=== PATIENT | male | born 1970 | race Caucasian/White ===

== ENCOUNTER 2020-02-21 05:28 | Inpatient (IN) | payer BC, OTHER ==
[2020-02-21] MEDS ORDERED: Scopolamine 1.5 MG Transdermal Patch TOP SCH (06:00)
[2020-02-21] MEDS ORDERED: Dextrose 5%-Lactated Ringers 1,000 ML IV SCH ×2 (06:00→12:15)
[2020-02-21] MEDS ORDERED: Acetaminophen 500 MG Tab PO ONE (06:00)
[2020-02-21] MEDS ORDERED: Celecoxib 200 MG Cap PO ONE (06:00)
[2020-02-21] MEDS ORDERED: cefOXitin 2 GM in Sodium Chloride 0.9% 50 ML IV ONE (06:00)
[2020-02-21] MEDS ORDERED: Albuterol 8 GM Inhaler INH ONE (06:00)
[2020-02-21] MEDS ORDERED: Albuterol/Ipratropium 3.0-0.5 MG/3 ML Neb Soln NEB ONE (06:30)
[2020-02-21] MEDS ORDERED: cefOXitin 2 GM Vial ONE (06:31)
[2020-02-21] MEDS ORDERED: fentaNYL 250 MCG/5 ML SDV ONE ×2 (07:03→08:28)
[2020-02-21] MEDS ORDERED: Neostigmine Methylsulfate 1 MG/ML 5 ML Syringe ONE (07:04)
[2020-02-21] MEDS ORDERED: Glycopyrrolate 0.2 MG/ML 5 ML MDV ONE (07:04)
[2020-02-21] MEDS ORDERED: Rocuronium 50 MG/5 ML Vial ONE (07:04)
[2020-02-21] MEDS ORDERED: Propofol 200 MG/20 ML SDV ONE (07:04)
[2020-02-21] MEDS ORDERED: Ondansetron 4 MG/2 ML SDV ONE (07:04)
[2020-02-21] MEDS ORDERED: Succinylcholine 200 MG/10 ML MDV ONE (07:04)
[2020-02-21] MEDS ORDERED: Dexamethasone 4 MG/ML SDV ONE (07:04)
[2020-02-21] MEDS ORDERED: Lactated Ringers 1,000 ML ONE (07:09)
[2020-02-21] MEDS ORDERED: Magnesium Sulfate 3.6 GM in Sodium Chloride 0.9% 100 ML IV SCH (08:00)
[2020-02-21] MEDS ORDERED: Ketamine 500 MG/5 ML MDV IV SCH (08:00)
[2020-02-21] MEDS ORDERED: Ketamine 50 MG in Sodium Chloride 0.9% 49.5 ML IV SCH (08:00)
[2020-02-21] MEDS ORDERED: Magnesium Sulfate 5.7 GM in Sodium Chloride 0.9% 250 ML IV ONE (08:30)
[2020-02-21] MEDS ORDERED: Labetalol 20 MG/4 ML Syringe ONE (08:37)
[2020-02-21] MEDS ORDERED: hydrOXYzine HCL 100 MG/2 ML SDV IM ONE (10:04)
[2020-02-21] MEDS ORDERED: fentaNYL 100 MCG/2 ML SDV IVPUSH ONE ×2 (10:24→10:42)
[2020-02-21] MEDS ORDERED: HYDROmorphone 1 MG/ML Syringe ONE (11:59)
[2020-02-21] MEDS ORDERED: Cyclobenzaprine 10 MG Tab PO PRN (12:02)
[2020-02-21] MEDS ORDERED: hydrOXYzine HCL 100 MG/2 ML SDV IM PRN (13:00)
[2020-02-21] MEDS ORDERED: Calcium Gluconate 10% 1 GM/10 ML SDV IVPUSH PRN (13:00)
[2020-02-21] MEDS ORDERED: Acetaminophen 500 MG Tab PO PRN (13:00)
[2020-02-21] MEDS ORDERED: Labetalol 20 MG/4 ML Syringe IVPUSH PRN (13:00)
[2020-02-21] MEDS ORDERED: diphenhydrAMINE 50 MG/ML SDV IVPUSH PRN (13:00)
[2020-02-21] MEDS ORDERED: Metoclopramide 10 MG/2 ML SDV IVPUSH PRN (13:00)
[2020-02-21] MEDS ORDERED: HYDROmorphone 0.5 MG/0.5 ML Syringe IVPUSH PRN (13:00)
[2020-02-21] MEDS ORDERED: Albuterol/Ipratropium 3.0-0.5 MG/3 ML Neb Soln INH PRN (13:00)
[2020-02-21] MEDS ORDERED: oxyCODONE 5 MG Tab PO PRN (13:00)
[2020-02-21] MEDS: cefOXitin 2 GM in Sodium Chloride 0.9% 50 ML IV SCH ×2 (14:05→20:52)
[2020-02-21] MEDS: Acetaminophen 500 MG Tab PO SCH ×3 (14:05→23:11)
[2020-02-21] MEDS: Pantoprazole 40 MG Vial IVPUSH SCH (14:05)
[2020-02-21] MEDS: HYDROmorphone 1 MG/ML Syringe IV PRN ×2 (14:30→21:16)
[2020-02-21] MEDS: Albuterol/Ipratropium 3.0-0.5 MG/3 ML Neb Soln INH SCH ×2 (14:46→20:51)
[2020-02-21] MEDS ORDERED: MVI, Adult with Vitamin K 10 ML, Thiamine 200 MG, Chromium/Copper/Mang/Selen/Zn 1 ML in... IV SCH ×4 (16:00)
[2020-02-21] MEDS: Heparin Sodium 5,000 Units/ML Vial SUBCUT SCH (16:53)
[2020-02-22] MEDS: cefOXitin 2 GM in Sodium Chloride 0.9% 50 ML IV SCH ×3 (00:59→14:33)
[2020-02-22] MEDS ORDERED: Iopamidol 612 MG/ML 50 ML SDV PO STA (03:36)
[2020-02-22] MEDS: Heparin Sodium 5,000 Units/ML Vial SUBCUT SCH ×2 (03:37→17:59)
[2020-02-22] MEDS: HYDROmorphone 1 MG/ML Syringe IV PRN (03:42)
--- NOTE | 2020-02-22 05:01 | CRLCR ---
INDICATION: S/P RNY LEAK CHECK Findings/Impression: Transit of contrast into the small bowel with mild residual in the gastric pouch and distal esophagus. No contrast extravasation demonstrated into the peritoneal cavity. Dictated by Daryl Garcia MD @ 02/22/2020 4:58:54 AM Dictated by: Rafita Lerner MD @ 02/23/2020 09:21:15 (Electronically Signed)
[2020-02-22] MEDS: Acetaminophen 500 MG Tab PO SCH (05:15)
[2020-02-22] MEDS: Albuterol/Ipratropium 3.0-0.5 MG/3 ML Neb Soln INH SCH ×4 (07:00→20:27)
[2020-02-22] MEDS ORDERED: traZODone 50 MG Tab PO PRN (07:37)
[2020-02-22] MEDS ORDERED: Dextrose 5%-Lactated Ringers 1,000 ML IV SCH (07:45)
[2020-02-22] MEDS: Ondansetron 4 MG/2 ML SDV IVPUSH PRN ×2 (07:50→12:57)
[2020-02-22] MEDS: Celecoxib 200 MG Cap PO SCH ×2 (08:59→20:26)
[2020-02-22] MEDS ORDERED: SCOPOLAMINE PATCH CHECK TOP SCH (09:00)
[2020-02-22] MEDS: Acetaminophen Soln 650 MG/20.3 ML UD Cup PO SCH ×2 (09:01→21:07)
[2020-02-22] MEDS ORDERED: Acetaminophen Soln 650 MG/20.3 ML UD Cup PO PRN (14:30)
[2020-02-22] MEDS: Pantoprazole 40 MG Vial IVPUSH SCH (14:33)
[2020-02-22] MEDS ORDERED: MVI, Adult with Vitamin K 10 ML, Thiamine 200 MG, Chromium/Copper/Mang/Selen/Zn 1 ML in... IV SCH ×4 (16:00)
[2020-02-22] MEDS ORDERED: Ondansetron 4 MG Tab.DIS PO PRN (17:44)
[2020-02-23] MEDS: Acetaminophen Soln 650 MG/20.3 ML UD Cup PO SCH ×2 (04:02→08:17)
[2020-02-23] MEDS: Heparin Sodium 5,000 Units/ML Vial SUBCUT SCH (04:03)
[2020-02-23 04:10] VITALS: BP 150/68
[2020-02-23] MEDS: Albuterol/Ipratropium 3.0-0.5 MG/3 ML Neb Soln INH SCH (06:58)
[2020-02-23 06:59] VITALS: PULSE 84
[2020-02-23] MEDS: Celecoxib 200 MG Cap PO SCH (08:16)
[2020-02-23] MEDS ORDERED: Cyanocobalamin (Vitamin B12) 1,000 MCG/ML SDV IM ONE (09:00)
--- NOTE | 2020-02-23 09:23 | DISCH ---
ADMISSION DIAGNOSES: 1. Morbid obesity. 2. BMI 43.8. 3. Obstructive sleep apnea. 4. Systolic murmur. 5. Hypercholesterolemia. 6. Sensorineural hearing loss. 7. Diverticulitis. DISCHARGE DIAGNOSES: 1. Laparoscopic Jose-en-Y gastric bypass surgery. 2. Liver biopsy. 3. Repair of diaphragmatic hernia. 4. Partial gastrectomy. POSTOPERATIVE DIAGNOSES: 1. Morbid obesity. 2. Hepatomegaly. 3. Diaphragmatic hernia. 4. Area of gastric resection after formation of pouch. 5. Date of procedure: 02/21/2020. Surgeon: Chucho Nieto MD. HISTORY: Jordan Hatch is a pleasant 49-year-old male with morbid obesity and increasing comorbidities. After preoperative evaluation, discussion of possible risks and possible complications, he wished to proceed with surgical procedure. HOSPITAL COURSE: Jordan had his surgery on 02/21/2020. He had no operative complications. On postoperative day #1, he was started on a step 2 gastric bypass diet with no cereal. On postoperative day #2, his pain was controlled. His activity was good. Vital signs were stable. He received dietary instructions and was able to be discharged to home. PHYSICAL EXAMINATION: GENERAL: Jordan Hatch is a 49-year-old male. He is alert and orientated. VITAL SIGNS: Height is 5 feet 7.5 inches, weight is 284 pounds. TPR is 97.3; 89; 18; blood pressure 150/68. HEENT: Negative. NECK: Supple. HEART: Regular rate and rhythm. LUNGS: Clear. ABDOMEN: Incisions look good. Abdominal binder is on and 4x4s over KATARZYNA drain site. EXTREMITIES: Without peripheral edema. DISPOSITION: Discharged to home. CONDITION: Stable and improving. FOLLOWUP: Appointment with Terri Hadley PA-C, at [facility] on 02/29/2020 at 11:30 a.m. HOME PRESCRIPTIONS: 1. Oxycodone 5 mg p.o. q.6 hours p.r.n. pain, #12. 2. Zofran ODT 4 mg p.o. q.4 hours p.r.n. for nausea, #30. 3. Celebrex 200 mg p.o. b.i.d. 4. Tylenol 1000 mg p.o. q.8 hours for pain. 5. Trazodone 50 mg at bedtime. 6. Sildenafil 20 mg as directed p.r.n. 7. Flexeril 10 mg t.i.d. p.r.n. 8. Albuterol inhaler every 6 hours p.r.n. 9. Clotrimazole 1 applicator twice daily. DIET: Step 2 gastric bypass diet with no cereal until 03/07/2020. To drink 8 to 10 glasses of water a day. OTHER ACTIVITY: No lifting greater than 10 pounds for 2 weeks. Walk 6 times daily inside your home. Driving: Do not drive for 1 week or while on pain medication. Shower/bathing: May shower. DISCHARGE INSTRUCTIONS: Keep operative site clean and dry. Wear abdominal binder for 2 weeks and then as tolerated. Notify provider if any fever, increased pain, nausea, or vomiting. Use incentive spirometer 10 times every hour while awake for 1 week.
--- NOTE | 2020-02-23 20:05 | PN ---
DATE OF SERVICE: 02/22/2020 The patient has been afebrile with stable vital signs. Urine output has been adequate. Upper GI was done this morning. We will back down the IV rate and maximize activity and work with pulmonary toilet. We will go up to the step-2 diet without solids today and he may be ready for discharge home tomorrow. Chucho Nieto MD /[id number]
--- NOTE | 2020-02-25 14:26 | OR ---
DATE OF PROCEDURE: 02/21/2020 SURGEON: Chucho Nieto MD PREOPERATIVE DIAGNOSIS: Morbid obesity. POSTOPERATIVE DIAGNOSES: 1. Morbid obesity. 2. Marked hepatomegaly. 3. Paraesophageal diaphragmatic hernia. 4. Area of gastric ischemia, status post formation of gastric pouch. OPERATIVE PROCEDURE: Diagnostic laparoscopy with: 1. Laparoscopic Jose-en-Y gastric bypass with long-limb gastroenterostomy (59751). 2. Carlos-Cut needle liver biopsy (61158). 3. Repair of paraesophageal diaphragmatic hernia (88445). 4. Partial gastrectomy (53063). ANESTHESIA: General. LICENSED FUNERAL DIRECTOR AND EMBALMER: Terri Hadley PA-C INDICATIONS FOR PROCEDURE: This is a 49-year-old presenting with longstanding morbid obesity and increasingly significant comorbidities. After preoperative evaluation and discussion, he wished to proceed with a gastric bypass procedure. Potential risks of the procedure including bleeding, infection, leaks from various GI tract closures, problems with bowel obstruction over time, as well as the possibility of cardiopulmonary, septic, or hemorrhagic complications leading to were discussed, and the patient wishes to proceed. DETAILS OF PROCEDURE: The patient was taken to the operative room. After general endotracheal anesthesia was induced, he was placed in a lithotomy position and the abdomen prepped and draped. 15 cm inferior and 5 cm left of the xiphoid process, a transverse incision was made and the peritoneal cavity entered under direct vision with an Optiview trocar and inflated to 15 mmHg with CO2. The laparoscope was then reinserted. No underlying trocar insertion site injuries were seen. Following this, bilateral transversus abdominis plane blocks were placed, and 5 additional trocars were placed across the upper mid abdomen. The patient was noted to have marked hepatomegaly with liver being grossly fatty infiltrated. Carlos-Cut needle biopsies were obtained from the left lobe of the liver. Minimal bleeding from the biopsy sites was controlled with electrocautery. The omentum was then divided in the midline up to the level of the transverse colon. This allowed identification of the small bowel at the ligament of Treitz. Small bowel was then traced out 150 cm distal to that point and was divided transversely with a LOYD stapler. Small bowel was then traced out additional 150 cm where a [id number] enteroenterostomy was accomplished with internal firing of the Endo-LOYD 60 mm stapler. Common opening was then closed transversely with the same stapler, angles anastomosed, and mesenteric defect approximated with some 0 Ethibond stitch along with 4 mL of fibrin sealant. The divided Jose limb was then brought up to the area of the esophagogastric junction without tension. The liver was then retracted anteriorly. The patient was noted to have significant paraesophageal diaphragmatic hernia with prolapse of perigastric fat, some gastric fundus, and some omentum in a plane anterior to the course of the esophagus. This was reduced and the peritoneum overlying incised and reflected downward. An anterior repair of the diaphragmatic hernia was accomplished with 0 Ethibond sutures reinforced with PTFE pledgets. The gastrointestinal balloon catheter was then inflated with 15 mL and pulled up snugly against the EJ junction. Gastric wall over the apex of the balloon was then marked with electrocautery and balloon catheter deflated and pulled up in the esophagus. The lesser omental tissue adjacent to the gastric cardia was then incised, allowing dissection behind the stomach at that level. Pouch formation was initiated with transverse firing of the LOYD stapler at the level of the cauterized amilcar at the gastric cardia and completed with some additional LOYD firings up to and through the angle of His. Upon completion of the pouch, both staple lines were noted to be intact. The distal end of the gastric pouch was noted to be quite ischemic at this point, and additional gastric resection was then accomplished with a LOYD stapler firing x2. The remaining gastric pouch was noted to be well vascularized. The anvil of a 25 mm EEA stapler was attached to a Summit sump type tube, the latter was brought down through the mouth and taken out through a small opening in the gastric pouch, allowing the anvil likewise to be pulled down to within the gastric pouch. The divided Jose limb was then opened, and the main body of the EEA stapler passed several centimeters in the lumen of the small bowel, brought up the anvil, and united with it, thus creating the gastrojejunostomy. Upon removal of the stapler, double donuts of mucosa were noted within it. Small bowel was closed off with a vascular staple line. Gastrojejunostomy was reinforced with 3-0 Vicryl seromuscular stitch along with fibrin sealant. A leak test was accomplished with injection of 120 mL of air in the gastric pouch while it was submerged with cefoxitin-containing saline solution. No leaks were identified. A single Fabian- Lunsford drain was taken out through the left lateral trocar site and positioned adjacent to the gastrojejunostomy, and from there, up into the splenic fossa. No additional problems were noted. Trocars were removed and the peritoneal cavity deflated. The incisions were closed with some 4-0 Vicryl skin stitch and drains affixed with 4-0 Vicryl stitch as well. The patient was taken to the recovery room in satisfactory condition. Physician nurseryman assistant, Terri Hadley, played an essential role in assisting in this case, helping to position the patient, retract structures as needed, as well as suturing and cutting sutures when indicated. Her presence improved patient's safety and decreased operative time. Chucho Nieto MD /[id number]
== END 2020-02-23 09:30 | disposition home or self-care (01) | DRG 403 ==
LOC: JP.SDS 05:28 → JP.SDSSCHI 05:28 → EDSTATUS 07:15 → JP.MS 10:00
PROVIDERS: ADMIT Surgery; ATTEND Surgery
PROC: 0D164ZA Bypass Stomach to Jejunum, Percutaneous Endoscopic Approach (ICD-10-PCS; principal; 2020-02-21)
PROC: 0FB24ZX Excision of Left Lobe Liver, Percutaneous Endoscopic Approach, Diagnostic (ICD-10-PCS; 2020-02-21)
PROC: 0DB64ZZ Excision of Stomach, Percutaneous Endoscopic Approach (ICD-10-PCS; 2020-02-21)
PROC: 0BQT4ZZ Repair Diaphragm, Percutaneous Endoscopic Approach (ICD-10-PCS; 2020-02-21)
DX: E66.01 Morbid (severe) obesity due to excess calories (principal); G47.33 Obstructive sleep apnea (adult) (pediatric); E78.00 Pure hypercholesterolemia, unspecified; R16.0 Hepatomegaly, not elsewhere classified; K44.9 Diaphragmatic hernia without obstruction or gangrene; R01.1 Cardiac murmur, unspecified; H90.5 Unspecified sensorineural hearing loss; F32.9 Major depressive disorder, single episode, unspecified; I99.8 Other disorder of circulatory system; Z68.41 Body mass index [BMI] 40.0-44.9, adult
CPT/HCPCS: 36415; 74240; 82962; 86850; 86900; 86901; 88305; 88307; 88313; 94640; 94762; A9270-GY; C9113; J0171; J0330; J0694; J1100; J1170; J1644; J2405; J2704; J2710; J2795; J3010; J3410; J3411; J3420; J3475; J3490; J7050; J7120; J7121; J7620-GY; Q9967

== ENCOUNTER 2020-07-10 21:11 | Emergency (ER) | payer BC ==
[2020-07-10 21:47] VITALS: BP 144/79; PULSE 68
[2020-07-10] MEDS ORDERED: Sodium Chloride 0.9% 10 ML Syringe FLUSH PRN (21:56)
[2020-07-10] MEDS ORDERED: Lactated Ringers 1,000 ML IV ONE (21:56)
[2020-07-10] MEDS ORDERED: Ondansetron 4 MG/2 ML SDV IVPUSH ONE (21:56)
--- NOTE | 2020-07-10 21:59 | EDM.PDOC ---
ED HPI GENERAL MEDICAL PROBLEM - General Chief Complaint: Gastrointestinal Problem Stated Complaint: STOMACH CRAMPING- 4 MO POST GASTRIC Time Seen by Provider: 07/10/20 21:52 Source of Information: Reports: Patient, Family, RN Notes Reviewed History Limitations: Reports: No Limitations - History of Present Illness INITIAL COMMENTS - FREE TEXT/NARRATIVE: 49-year-old gentleman presents emergency department with a complaint of abdominal pain, he is approximately 4 months out gastric bypass states over the last couple weeks he has noticed has had problems with the portions that he has been able to eat to have been reduced in size and now this morning he had eggs for breakfast he still getting a few pieces of egg when he regurgitate, intermittent nausea intermittent pain no fever - Related Data Allergies Allergy/AdvReac Type Severity Reaction Status Date / Time No Known Allergies Allergy Verified 07/10/20 21:23 Home Meds: Home Meds Albuterol Sulfate [Proair Hfa] 8.5 gm IH Q6HR PRN 08/25/14 [History] Clotrimazole [Clotrimazole 1%] 1 applic TOP BID 02/18/20 [History] Sildenafil [Revatio] 20 mg PO ASDIRECTED PRN 02/18/20 [History] Acetaminophen [Tylenol] 500 mg PO Q8H PRN cup 02/23/20 [Rx] Ondansetron [Zofran ODT] 4 mg PO Q4H PRN #30 tab.dis 02/23/20 [Rx] Calcium Carbonate [Calcium] 1 tab PO BID 07/10/20 [History] Magnesium Oxide [Magnesium] 2 tab PO BID 07/10/20 [History] Mecobalamin [B12 Active] 1,000 mg SL BID 07/10/20 [History] Multivitamin/Iron/Folic Acid [Centrum Adults Tablet] 1 tab PO BID 07/10/20 [History] Vit D3 & K/Berberine HCl/Hops [Ostera] 1 tab PO BID 07/10/20 [History] Past Medical History HEENT History: Reports: Impaired Vision Other HEENT History: wears glasses Respiratory History: Reports: Sleep Apnea Gastrointestinal History: Reports: Diverticulosis, GERD Psychiatric History: Reports: Anxiety Endocrine/Metabolic History: Reports: Obesity/BMI 30+ Dermatologic History: Reports: Eczema - Infectious Disease History Infectious Disease History: Reports: Chicken Pox, Influenza - Past Surgical History HEENT Surgical History: Reports: None Respiratory Surgical History: Reports: None GI Surgical History: Reports: Colonoscopy, EGD, Hernia, Abdominal, Polypectomy Male Surgical History: Reports: Vasectomy Endocrine Surgical History: Reports: None Dermatological Surgical History: Reports: None, Skin Biopsy Social & Family History - Family History Cardiac: Reports: High Cholesterol, NE Musculoskeletal: Reports: Arthritis Endocrine/Metabolic: Reports: Diabetes, type II Oncologic: Reports: Prostate - Tobacco Use Tobacco Use Status *Q: Never Tobacco User - Caffeine Use Caffeine Use: Reports: Coffee - Recreational Drug Use Recreational Drug Use: No ED ROS GENERAL - Review of Systems Review Of Systems: See Below Constitutional: Reports: No Symptoms Respiratory: Reports: No Symptoms Cardiovascular: Reports: No Symptoms GI/Abdominal: Reports: Abdominal Pain, Flatus, Nausea ED EXAM, GI/ABD - Physical Exam Exam: See Below Exam Limited By: No Limitations General Appearance: Alert, WD/WN, No Apparent Distress Respiratory/Chest: No Respiratory Distress, Lungs Clear, Normal Breath Sounds, No Accessory Muscle Use, Chest Non-Tender Cardiovascular: Regular Rate, Rhythm, No Murmur GI/Abdominal Exam: Normal Bowel Sounds, Soft, No Distention, Tender (Epigastric periumbilical region) Course - Vital Signs Last Recorded V/S: Last Vital Signs Temp 98 F 07/10/20 21:47 Pulse 68 07/10/20 21:47 Resp 18 07/10/20 21:47 BP 144/79 H 07/10/20 21:47 Pulse Ox 100 07/10/20 21:47 - Orders/Labs/Meds Orders: Active Orders 24 hr Category Date Time Status Peripheral IV Care [RC] . DIRECTED Care 07/10/20 21:56 Active Sodium Chloride 0.9% [Normal Saline] 85 ml Med 07/10/20 22:30 Active IV ASDIRECTED Sodium Chloride 0.9% [Saline Flush] Med 07/10/20 21:56 Active 10 ml FLUSH ASDIRECTED PRN Peripheral IV Insertion Adult [OM.PC] Urgent Oth 07/10/20 21:56 Ordered Medication Orders Sodium Chloride (Normal Saline) 85 mls @ 3.5 mls/sec IV ASDIRECTED NGUYỄN Last Admin: 07/10/20 22:40 Dose: 3.5 mls/sec Documented by: JELANI Sodium Chloride (Saline Flush) 10 ml FLUSH ASDIRECTED PRN PRN Reason: Keep Vein Open Last Admin: 07/10/20 22:43 Dose: 10 ml Documented by: SHI Labs: Laboratory Tests 07/10/20 07/10/20 07/10/20 Range/Units 22:08 22:08 22:08 WBC 9.3 (4.5-11.0) K/uL RBC 5.02 (4.30-5.90) M/uL Hgb 14.1 (12.0-15.0) g/dL Hct 42.7 (40.0-54.0) % MCV 85 (80-98) fL MCH 28 (27-31) pg MCHC 33 (32-36) % Plt Count 276 (150-400) K/uL Neut % (Auto) 78 H (36-66) % Lymph % (Auto) 14 L (24-44) % [place] % (Auto) 8 H (2-6) % Eos % (Auto) 1 L (2-4) % Baso % (Auto) 0 (0-1) % Sodium 142 (140-148) mmol/L Potassium 3.9 (3.6-5.2) mmol/L Chloride 104 (100-108) mmol/L Carbon Dioxide 26 (21-32) mmol/L Anion Gap 12.4 (5.0-14.0) mmol/L BUN 15 (7-18) mg/dL Creatinine 0.7 L (0.8-1.3) mg/dL Est Cr Clr Drug Dosing 122.76 mL/min Estimated GFR (MDRD) > 60 (>60) Glucose 100 (74-106) mg/dL Lactic Acid 1.1 (0.4-2.0) mmol/L Calcium 9.9 (8.5-10.1) mg/dL Total Bilirubin 0.4 (0.2-1.0) mg/dL AST 28 (15-37) U/L ALT 105 H (12-78) U/L Alkaline Phosphatase 134 H (46-116) U/L Total Protein 7.0 (6.4-8.2) g/dL Albumin 3.8 (3.4-5.0) g/dL Globulin 3.2 (2.3-3.5) g/dL Albumin/Globulin Ratio 1.2 (1.2-2.2) Meds: Medications Generic Name Dose Route Start Last Admin Trade Name Anjali PRN Reason Stop Dose Admin Sodium Chloride 85 mls @ 3.5 mls/sec 07/10/20 22:30 07/10/20 22:40 Normal Saline IV 3.5 mls/sec ASDIRECTED NGUYỄN Administration Sodium Chloride 10 ml 07/10/20 21:56 07/10/20 22:43 Saline Flush FLUSH 10 ml ASDIRECTED PRN Administration Keep Vein Open Discontinued Medications Generic Name Dose Route Start Last Admin Trade Name Anjali PRN Reason Stop Dose Admin Lactated Ringer's 1,000 mls @ 999 mls/hr 07/10/20 21:56 07/10/20 22:25 Ringers, Lactated IV 07/10/20 22:56 999 mls/hr BOLUS ONE Administration Iopamidol 150 ml 07/10/20 22:17 07/10/20 22:39 Isovue-300 (61%) IV 07/10/20 22:18 150 ml ONETIME ONE Administration Ondansetron HCl 4 mg 07/10/20 21:56 07/10/20 22:22 Zofran IVPUSH 07/10/20 21:57 4 mg ONETIME ONE Administration Sodium Chloride 10 ml 07/10/20 22:17 07/10/20 22:39 Saline Flush FLUSH 07/10/20 22:18 10 ml ONETIME ONE Administration Departure - Departure Time of Disposition: 23:29 Disposition: Home, Self-Care 01 Condition: Fair Clinical Impression: Gastric outlet obstruction - Discharge Information Referrals: PCP,None [Primary Care Provider] - Forms: ED Department Discharge Additional Instructions: Recommend no longer eating or drinking tonight, please report to the outpatient surgery center in the morning for an EGD with dilation with Dr. Nieto expect this to be the first case Sepsis Event Note (ED) - Evaluation Sepsis Screening Result: No Definite Risk - Focused Exam Vital Signs: Vital Signs Temp Pulse Resp BP Pulse Ox 07/10/20 21:47 98 F 68 18 144/79 H 100 07/10/20 21:46 98 F 68 18 144/79 H 100 - My Orders Last 24 Hours: My Active Orders 07/10/20 21:56 Peripheral IV Care [RC] . DIRECTED Sodium Chloride 0.9% [Saline Flush] 10 ml FLUSH ASDIRECTED PRN Peripheral IV Insertion Adult [OM.PC] Urgent 07/10/20 22:30 Sodium Chloride 0.9% [Normal Saline] 85 ml IV ASDIRECTED - Assessment/Plan Last 24 Hours: My Active Orders 07/10/20 21:56 Peripheral IV Care [RC] . DIRECTED Sodium Chloride 0.9% [Saline Flush] 10 ml FLUSH ASDIRECTED PRN Peripheral IV Insertion Adult [OM.PC] Urgent 07/10/20 22:30 Sodium Chloride 0.9% [Normal Saline] 85 ml IV ASDIRECTED Plan: Assessment Acuity = acute Site and laterality = low-grade outlet obstruction anastomosis Etiology = unknown Manifestations = nausea, abdominal pain Location of injury = Home Lab values = CBC CMP lactic acid unremarkable however CT scan does describe a probable outlet obstruction low-grade at the anastomosis site from his Jose-en-Y surgery Plan Call discussed case Dr. Nieto surgeon on-call at 2320 recommended EGD with dilation plan is to be n.p.o. aleja he will report to the outpatient surgery tomorrow morning at 7 AM for this procedure, this is coordinated with the vat house laborer This note was dictated using [employer] voice recognition software please call with any questions on syntax or grammar.
[2020-07-10] MEDS ORDERED: Sodium Chloride 0.9% 10 ML Syringe FLUSH ONE (22:17)
[2020-07-10] MEDS ORDERED: Iopamidol 612 MG/ML 500 ML Multipack Bottle IV ONE (22:17)
--- NOTE | 2020-07-10 23:19 | CRLCT ---
Indication: Epigastric pain, Jose-en-Y Technique: Contrast enhanced axial CT imaging through the abdomen and pelvis. 150 mL Isovue-300 contrast agent was administered intravenously. Sagittal and coronal reconstructions are provided. Comparison: CT abdomen pelvis without contrast 10/29/2018 Findings: Jose-en-Y gastric bypass changes are noted. The gastric pouch and excluded stomach are unremarkable. There is no appreciable wall thickening, adjacent edema, or fluid collection at the gastrojejunal and jejunojejunal anastomosis sites. However, there is mild distention involving the distal biliopancreatic limb, up to 3.2 cm with abrupt transition to normal caliber at the anastomosis. The alimentary limb is nondistended. The distal small bowel is unremarkable. The appendix is noninflamed. There is no colonic wall thickening, mesenteric edema, or intraperitoneal free fluid. Note is made of a small shallow fat containing umbilical hernia, unchanged since prior. There is a 3.8 cm lobulated hypoattenuating lesion in the anterior aspect of the right hepatic lobe. This was likely present on prior non CT but appears somewhat increased in size. Additional smaller lobulated hypoattenuating lesion is noted in the superior aspect of the lateral segment left hepatic lobe. This demonstrates nodular peripheral enhancement, an appearance suggestive of benign hemangioma. A subcentimeter hypoattenuating focus is also noted in the posterior inferior right hepatic, too small to characterize. Ill-defined focus of hypoattenuation in the anterior medial segment adjacent to the fissure for ligamentum venosum is compatible benign focal fat. The gallbladder, spleen, adrenal glands, pancreas, and kidneys are unremarkable. The portal vein is patent. The abdominal aorta is normal in caliber. There is no abdominal lymphadenopathy. A moderate amount of free fluid is noted in the pelvis. The urinary bladder, seminal vesicles, and prostate gland are unremarkable. There is no pelvic lymphadenopathy. The osseous structures are unremarkable. The included lung bases are clear. Impression: 1. Mild distention of the distal biliopancreatic limb, suggesting low-grade obstruction at the jejunojejunal anastomosis is not excluded. The alimentary limb is nondistended. No appreciable abnormality of the gastric pouch, excluded stomach, or gastrojejunal anastomosis. 2. Two lobulated hypoattenuating lesions in the liver, one of which demonstrates peripheral nodular enhancement. These are favored to represent benign hemangiomas. Nonemergent contrast-enhanced MRI of the abdomen is recommended for confirmation, if not previously performed. 3. Nonspecific free fluid layering in the pelvis. Please note that all CT scans at this facility use dose modulation, iterative reconstruction, and/or weight-based dosing when appropriate to reduce radiation dose to as low as reasonably achievable. Dictated by Daryl Garcia MD @ Jul 10 2020 10:59PM Signed by Dr. Daryl Garcia @ Jul 10 2020 11:17PM
== END 2020-07-10 23:48 | disposition home or self-care (01) ==
LOC: JP.ED 21:11
DX: K31.1 Adult hypertrophic pyloric stenosis (principal); E66.9 Obesity, unspecified; Z68.36 Body mass index [BMI] 36.0-36.9, adult; Z79.899 Other long term (current) drug therapy
CPT/HCPCS: 36415; 74177; 80053; 83605; 85025; 96361; 96374; 99284; 99284-25; J2405; J7120; Q9967

== ENCOUNTER → 2020-07-11 | Day surgery (SDC) | payer BC ==
[~2020-07-11] MED LIST: Cyanocobalamin (Vitamin B12) 1,000 MCG/ML SDV IM ONE; Dextrose 5%-Lactated Ringers 1,000 ML IV SCH; Glycopyrrolate 0.2 MG/ML 2 ML SDV IVPUSH ONE; Lactated Ringers 1,000 ML IV SCH; MVI, Adult with Vitamin K 10 ML, Zinc/Copper/Manganese/Selenium 1 ML, Thiamine 200 MG i... IV ONE; Midazolam 1 MG/ML 2 ML SDV ONE; Propofol 200 MG/20 ML SDV ONE; fentaNYL 100 MCG/2 ML SDV ONE
[2020-07-11 09:20] VITALS: PULSE 61
[2020-07-11 09:27] VITALS: BP 113/69
--- NOTE | 2020-07-16 12:37 | OR ---
DATE OF PROCEDURE: 07/11/2020 SURGEON: Chucho Nieto MD PREOPERATIVE DIAGNOSIS: Postprandial abdominal pain status post a Jose-en-Y gastric bypass. POSTOPERATIVE DIAGNOSIS: Normal upper gastrointestinal endoscopic examination status post Jose-en-Y gastric bypass suggestive of a more distal partial small bowel obstruction. OPERATIVE PROCEDURE: Upper gastrointestinal endoscopy. ANESTHESIA: IV sedation. INDICATIONS FOR PROCEDURE: The patient was seen in the emergency room last night. He is status post Jose-en-Y gastric bypass this past fall. Over the last several days, he has had some postprandial crampy pain and he had eaten some eggs earlier in the day, presented to the emergency room with a more intense crampy abdominal pain along with some nausea. The CT scan at that time showed some distention of the biliopancreatic limb suggestive of possible partial obstruction at that level. Plan at this point is to proceed with an upper GI endoscopy with biopsies and/or dilation as indicated. Potential risks including bleeding and perforation were discussed, and the patient wishes to proceed. DETAILS OF PROCEDURE: The patient was taken to the operating room, placed in a left lateral decubitus position. IV sedation was administered after which the upper GI endoscope was passed orally through the length of the esophagus, into the gastric pouch, from there through the gastrojejunostomy roughly 20 cm into the Jose limb. Overall, the findings were entirely normal. There were no areas of inflammation or stricturing and no backup of bile per se into the Jose limb. The scope was then withdrawn and the above findings reconfirmed. The patient at this point was given some clear liquids in the postoperative recovery area and did tolerate over 900 mL of liquids. The plan at this point will be to have him stay on a liquid diet for 1 week, and then if he is doing okay at that point, start with a step-3 soft solid diet, and follow the clinical trend. If he does develop a recurrent or persistent abdominal pain in the postprandial period, the next step would be to proceed with a limited laparotomy with release of undoubtedly at this point would be a partial small bowel obstruction. Chucho Nieto MD /[id number]
== END ==
LOC: JP.SDS 05:35
PROVIDERS: ATTEND Surgery
DX: K95.89 Other complications of other bariatric procedure (principal); Z01.812 Encounter for preprocedural laboratory examination; Z20.822 Contact with and (suspected) exposure to COVID-19; Z79.899 Other long term (current) drug therapy; E66.9 Obesity, unspecified; Z98.890 Other specified postprocedural states; Z68.35 Body mass index [BMI] 35.0-35.9, adult
CPT/HCPCS: J2250; J2704; J3010; J3411; J3420; J7120; U0002

== ENCOUNTER 2020-07-29 06:05 | Inpatient (IN) | payer BC ==
[2020-07-29] MEDS ORDERED: Celecoxib 200 MG Cap PO ONE ×2 (06:50→14:00)
[2020-07-29] MEDS ORDERED: Scopolamine 1.5 MG Transdermal Patch TOP SCH (06:50)
[2020-07-29] MEDS ORDERED: Bupivacaine 0.5% 50 ML MDV ONE (06:58)
[2020-07-29] MEDS ORDERED: Meropenem 500 MG SDV ONE (06:58)
[2020-07-29] MEDS ORDERED: Lidocaine 1% with EPINEPHrine 1:100,000 50 ML MDV ONE (06:58)
[2020-07-29] MEDS ORDERED: Albuterol/Ipratropium 3.0-0.5 MG/3 ML Neb Soln NEB ONE (07:00)
[2020-07-29] MEDS ORDERED: Dextrose 5%-Lactated Ringers 1,000 ML IV SCH (07:00)
[2020-07-29] MEDS ORDERED: Ketamine 500 MG/5 ML MDV IV SCH (07:30)
[2020-07-29] MEDS ORDERED: Ropivacaine 50 ML, dexAMETHasone 8 MG, EPINEPHrine 0.4 MG, Sodium Chloride 0.9% 27.6 ML NERVRT SCH ×4 (07:30)
[2020-07-29] MEDS ORDERED: Naloxone 0.4 MG/ML SDV IV PRN ×3 (07:30→12:00)
[2020-07-29] MEDS ORDERED: Ketamine 50 MG in Sodium Chloride 0.9% 49.5 ML IV SCH (07:30)
[2020-07-29] MEDS ORDERED: cefOXitin 2 GM in Sodium Chloride 0.9% 50 ML IV ONE (07:30)
[2020-07-29] MEDS ORDERED: Magnesium Sulfate 3 GM in Sodium Chloride 0.9% 100 ML IV SCH (07:30)
[2020-07-29] MEDS ORDERED: Ondansetron 4 MG/2 ML SDV ONE (07:33)
[2020-07-29] MEDS ORDERED: Rocuronium 50 MG/5 ML Vial ONE (07:33)
[2020-07-29] MEDS ORDERED: Dexamethasone 4 MG/ML SDV ONE (07:33)
[2020-07-29] MEDS ORDERED: Propofol 200 MG/20 ML SDV ONE (07:33)
[2020-07-29] MEDS ORDERED: Glycopyrrolate 0.2 MG/ML 5 ML MDV ONE (07:33)
[2020-07-29] MEDS ORDERED: Succinylcholine 200 MG/10 ML MDV ONE (07:33)
[2020-07-29] MEDS ORDERED: Neostigmine Methylsulfate 1 MG/ML 5 ML Syringe ONE (07:33)
[2020-07-29] MEDS ORDERED: fentaNYL 250 MCG/5 ML SDV ONE ×2 (07:33→08:03)
[2020-07-29] MEDS ORDERED: HYDROmorphone/Normal Saline 15 MG/30 ML PCA IV PRN ×3 (08:40→14:59)
[2020-07-29] MEDS ORDERED: hydrOXYzine HCL 100 MG/2 ML SDV IM ONE (09:30)
[2020-07-29] MEDS ORDERED: Pantoprazole 40 MG Vial IVPUSH SCH (10:45)
[2020-07-29] MEDS ORDERED: Cyclobenzaprine 10 MG Tab PO PRN (11:12)
[2020-07-29] MEDS: Acetaminophen 500 MG Tab PO ONE ×2 (11:34→14:26)
[2020-07-29] MEDS ORDERED: Metoclopramide 10 MG/2 ML SDV IVPUSH PRN (12:00)
[2020-07-29] MEDS ORDERED: Labetalol 20 MG/4 ML Syringe IVPUSH PRN (12:00)
[2020-07-29] MEDS ORDERED: Acetaminophen 500 MG Tab PO PRN (12:00)
[2020-07-29] MEDS ORDERED: Ondansetron 4 MG/2 ML SDV IVPUSH PRN (12:00)
[2020-07-29] MEDS ORDERED: hydrOXYzine HCL 100 MG/2 ML SDV IM PRN (12:00)
[2020-07-29] MEDS ORDERED: diphenhydrAMINE 50 MG/ML SDV IVPUSH PRN (12:00)
[2020-07-29] MEDS ORDERED: Calcium Gluconate 10% 1 GM/10 ML SDV IVPUSH PRN (12:00)
[2020-07-29] MEDS ORDERED: Albuterol/Ipratropium 3.0-0.5 MG/3 ML Neb Soln INH PRN (12:00)
[2020-07-29] MEDS: cefOXitin 2 GM in Sodium Chloride 0.9% 50 ML IV SCH ×2 (14:26→20:22)
[2020-07-29] MEDS: Acetaminophen 500 MG Tab PO SCH ×2 (14:26→22:34)
[2020-07-29] MEDS: Albuterol/Ipratropium 3.0-0.5 MG/3 ML Neb Soln INH SCH ×2 (14:36→20:22)
[2020-07-29] MEDS ORDERED: MVI, Adult with Vitamin K 10 ML, Thiamine 200 MG, Chromium/Copper/Mang/Selen/Zn 1 ML in... IV SCH ×4 (16:00)
[2020-07-29] MEDS: MVI, Adult with Vitamin K 10 ML, Thiamine 200 MG, Zinc/Copper/Manganese/Selenium 1 ML i... IV SCH ×4 (16:11)
[2020-07-29] MEDS: Pantoprazole 40 MG Vial IVPUSH SCH (16:12)
[2020-07-29] MEDS: Heparin Sodium 5,000 Units/ML Vial SUBCUT SCH (17:38)
[2020-07-29] MEDS: Dextrose 5%-Lactated Ringers 1,000 ML IV SCH (22:32)
[2020-07-30] MEDS: cefOXitin 2 GM in Sodium Chloride 0.9% 50 ML IV SCH ×4 (03:10→19:50)
[2020-07-30] MEDS ORDERED: Iopamidol 612 MG/ML 50 ML SDV PO STA (03:45)
[2020-07-30] MEDS: Dextrose 5%-Lactated Ringers 1,000 ML IV SCH (05:51)
[2020-07-30] MEDS: Acetaminophen 500 MG Tab PO SCH ×3 (05:53→21:30)
[2020-07-30] MEDS: Heparin Sodium 5,000 Units/ML Vial SUBCUT SCH ×2 (05:53→17:11)
[2020-07-30] MEDS: Albuterol/Ipratropium 3.0-0.5 MG/3 ML Neb Soln INH SCH ×4 (07:16→20:01)
[2020-07-30] MEDS: SCOPOLAMINE PATCH CHECK TOP SCH (09:39)
[2020-07-30] MEDS: Celecoxib 200 MG Cap PO SCH ×2 (09:44→20:04)
[2020-07-30] MEDS ORDERED: oxyCODONE 5 MG Tab PO PRN (10:28)
[2020-07-30] MEDS ORDERED: Dextrose 5%-Lactated Ringers 1,000 ML IV SCH (10:30)
[2020-07-30] MEDS: Docusate Sodium 100 MG Cap PO SCH ×2 (10:41→20:04)
[2020-07-30] MEDS: Bisacodyl 5 MG Tab PO SCH ×2 (10:41→20:03)
[2020-07-30] MEDS: MVI, Adult with Vitamin K 10 ML, Thiamine 200 MG, Zinc/Copper/Manganese/Selenium 1 ML i... IV SCH ×4 (16:52)
[2020-07-30] MEDS: Pantoprazole 40 MG Vial IVPUSH SCH (16:53)
[2020-07-31] MEDS: Acetaminophen 500 MG Tab PO SCH (06:19)
[2020-07-31] MEDS: Heparin Sodium 5,000 Units/ML Vial SUBCUT SCH (06:19)
[2020-07-31] MEDS: Albuterol/Ipratropium 3.0-0.5 MG/3 ML Neb Soln INH SCH ×2 (07:23→10:46)
[2020-07-31 07:45] VITALS: BP 120/75; PULSE 74
[2020-07-31] MEDS: Celecoxib 200 MG Cap PO SCH (08:21)
[2020-07-31] MEDS: SCOPOLAMINE PATCH CHECK TOP SCH (08:22)
[2020-07-31] MEDS: Bisacodyl 5 MG Tab PO SCH (08:23)
[2020-07-31] MEDS: Docusate Sodium 100 MG Cap PO SCH (08:23)
[2020-07-31] MEDS ORDERED: Cyanocobalamin (Vitamin B12) 1,000 MCG/ML SDV IM ONE (09:00)
--- NOTE | 2020-07-31 10:37 | CR ---
UGI Limited HISTORY: Postbariatric surgery FINDINGS: Patient swallowed water-soluble contrast. Upright views of the abdomen show no evidence of extravasation or obstruction. IMPRESSION: Status post bariatric surgery No extravasation or obstruction seen
--- NOTE | 2020-07-31 13:46 | DISCH ---
ADMISSION DIAGNOSIS: Partial small bowel obstruction. DISCHARGE DIAGNOSES: 1. Exploratory laparotomy with lysis of adhesions: a. Small-bowel resection. b. Small bowel stricture plasty. c. Placement of Interceed mesh. d. Excision of a typical nodule abdominal wall. 2. Partial small bowel obstruction with narrowing and distortion of the jejunojejunostomy. 3. Excision of intraabdominal adhesions. 4. Atypical nevus, midline abdominal wall, 8 mm. Date of procedure: 07/29/2020. Surgeon: Chucho Nieto MD. HISTORY: Jordan Hatch is a 49-year-old male with postprandial abdominal pain. After preoperative evaluation and discussion of possible risks and possible complications, he wished to proceed with surgical procedure. HOSPITAL COURSE: Jordan had his surgery on 07/29/2020. He had no operative complications. On postoperative day #1, he was started on a step 2, then step 3 diet. He was changed to oral pain medication. His activity was good. His oral intake adequate. Vital signs stable. He was able to be discharged to home on 07/31/2020. PHYSICAL EXAMINATION: GENERAL: Jordan Hatch is a pleasant 49-year-old male, alert and orientated. VITAL SIGNS: Height 5 feet 7.5 inches, weight is 224 pounds. TPR is 95.5, 74, 16, blood pressure 120/75. HEENT: Negative. NECK: Supple. HEART: Regular rate and rhythm. LUNGS: Clear. ABDOMEN: Aquacel dressings on. Abdominal binder is on. EXTREMITIES: Without peripheral edema. DISPOSITION: Discharged to home. CONDITION: Stable and improving. FOLLOWUP: Appointment with Terri Hadley PA-C, on 08/08/2020 at 10 a.m. HOME MEDICATIONS: 1. Acetaminophen 1000 mg p.o. q.8 hours p.r.n. pain. 2. Zofran ODT 4 mg sublingual every 4 hours p.r.n. nausea. 3. Trazodone 50 mg p.o. at bedtime p.r.n. 4. Flexeril 10 mg p.o. t.i.d. p.r.n. muscle spasms. 5. Albuterol ProAir inhaler 2 puffs every 6 hours p.r.n. shortness of breath. 6. He is to resume all vitamins and supplements. FOLLOWUP APPOINTMENTS: With Terri Hadley PA-C, on 08/08/2020 at 10 a.m. DIET: Step 3 gastric bypass diet. Drink 8 to 10 glasses of water a day. ACTIVITY: No lifting greater than 10 pounds for 6 weeks. Other Activity: Walk 6 times daily short distances. DISCHARGE INSTRUCTIONS: Shower/bathing: May shower. Keep operative site clean and dry. Take off Aquacel dressing on 08/01/2020, and replace it and take off the new Aquacel on 08/04/2020. May cover incision with gauze. Wear abdominal binder for [address] May [address]. Notify provider if any fever, increased pain, swelling, redness, drainage, nausea, or vomiting. SPECIAL INSTRUCTION: Use incentive spirometer 10 times every hour while awake for 1 week. /[id number]
--- NOTE | 2020-07-31 15:52 | PN ---
DATE OF SERVICE: 07/30/2020 The patient is postop day 1 from release of small obstruction with a limited small bowel resection yesterday. Clinically, he has done well overnight taking liquids satisfactorily. We will go over the step-2 diet today. Discontinue the [employer], go over to oral pain medication, begin some bowel stimulation and likely will be ready for discharge home tomorrow. Chucho Nieto MD /[id number]
--- NOTE | 2020-08-08 12:28 | OR ---
DATE OF PROCEDURE: 07/29/2020 SURGEON: Chucho Nieto MD PREOPERATIVE DIAGNOSIS: Partial small bowel obstruction. POSTOPERATIVE DIAGNOSES: 1. Partial small bowel obstruction associated with narrowing, distortion of jejunojejunostomy. 2. Extensive intraabdominal adhesions. 3. Atypical nevus midline abdominal wall. OPERATIVE PROCEDURES: 1. Exploratory laparotomy with lysis of adhesions and: a. Small bowel resection (21664). b. Small bowel stricturoplasty (51435). c. Placement of Interceed mesh to limit recurrent adhesion formation between the pelvic and abdominal wall and underlying viscera. 2. Excision of atypical nevus abdominal wall with layered closure (88627, [id number]). ANESTHESIA: General. 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 Over the past several weeks, he has had problems with postprandial abdominal pain. Upper endoscopy recently was unremarkable, and at this point, the patient is not able to progress his diet beyond liquids due to the postprandial abdominal pain and he appears to have a partial small-bowel obstruction. Plan is to proceed with exploratory laparotomy and release of the small bowel obstruction with bowel resection as indicated. Potential risks including bleeding, infection, injury to underlying viscera, problems with recurrent bowel obstruction, leaks from various GI tract closures and such were all reviewed, and the patient wishes to proceed. DETAILS OF PROCEDURE: The patient was taken to the operating room, and after general endotracheal anesthesia was induced, the abdomen was prepped and draped and a Hyatt catheter inserted. The patient was noted to have in the midline roughly 3 fingerbreadths above the umbilicus an atypical-appearing nevus which was located directly in the midline and the lesion plus margin length was 8 mm. An elliptical incision over the lesion in vertical midline was then made and carried down through the skin, subcutaneous tissue, and lesion removed intact. Eventually, the closure length of this segment was 1.4 cm, which included the layered deeper closure of the midline incision. Midline incision was extended from the umbilicus roughly a handsbreadth above the umbilicus and carried down to the full-thickness abdominal wall. Upon entering the peritoneal cavity, the patient was noted to have quite a bit in the way of adhesions in the area of the jejunojejunostomy as well as between the omentum and the previously-placed periumbilical mesh. The adhesions were taken down with a combination of giselle and electrocautery. Upon removal of the lesions at the jejunojejunostomy, there was noted to be somewhat fixed-appearing narrowing at the point where the Jose limb entered the jejunojejunostomy. The Jose limb was therefore detached with LOYD stapler and roughly a 5 cm segment of small bowel resected to facilitate increased mobility. The Jose-en-Y anatomy was then reconstructed with anastomosis between the distal end of the Jose limb and the small bowel roughly 20 cm distal to the original jejunojejunostomy was accomplished with internal firing of the Endo-LOYD 60 mm stapler. Common opening was then closed transversely with the same stapler. Angles anastomosed and mesenteric defect approximated with some 3-0 Vicryl stitch and encased mesenteric defect with a 2-0 silk stitch. The remaining anastomosis between the biliopancreatic limb and what had been the proximal- most common limb was noted to be somewhat strictured at this point. Small enterotomies were made on surface of each of the bowel as they were internal firing of the Endo- LOYD 60 mm stapler followed by a 30 mm internal firing of the LOYD stapler was then accomplished, and the common opening was then closed transversely with the purple LOYD staple loads. There was no mesenteric defect in this case and the angles anastomosed and reinforced with some 3-0 Vicryl stitch. At this point, the abdomen was irrigated with antibiotic-containing saline solution to limit recurrent adhesion formation between the pelvic and abdominal hummel and the underlying viscera. Interceed mesh was then placed underneath the incision from there down towards the pelvis including the area overlying the periumbilical mesh. The midline fascia was then approximated with #2 Vicryl stitch. Prior to closure, bilateral transversus abdominis plane blocks were placed and the fascia was anesthetized with 1% lidocaine mixed with Marcaine. Upon completion of the fascia closure with a #2 Vicryl stitch, subcutaneous tissue was approximated with a layer of 3-0 Vicryl stitch deep and 4-0 Vicryl subdermal stitch and giselle for the skin. Dressing was applied. The patient was taken to the recovery room in satisfactory condition. There were no evident complications. Chuhco Nieto MD /[id number]
== END 2020-07-31 10:30 | disposition home or self-care (01) | DRG 221 ==
LOC: JP.SDS 06:05 → UNDOADMIN 06:05 → JP.MS 06:05 → EDSTATUS 07:30
PROVIDERS: ADMIT Surgery; ATTEND Surgery
PROC: 0DQ80ZZ Repair Small Intestine, Open Approach (ICD-10-PCS; principal; 2020-07-29)
PROC: 0DNW0ZZ Release Peritoneum, Open Approach (ICD-10-PCS; principal; 2020-07-29)
PROC: 3E0M05Z Introduction of Adhesion Barrier into Peritoneal Cavity, Open Approach (ICD-10-PCS; principal; 2020-07-29)
PROC: 0WBF0ZZ Excision of Abdominal Wall, Open Approach (ICD-10-PCS; principal; 2020-07-29)
PROC: 0DB80ZZ Excision of Small Intestine, Open Approach (ICD-10-PCS; principal; 2020-07-29)
DX: K95.89 Other complications of other bariatric procedure (principal); Y83.8 Other surgical procedures as the cause of abnormal reaction of the patient, or of later complication, without mention of misadventure at the time of the procedure; K56.51 Intestinal adhesions [bands], with partial obstruction; H54.7 Unspecified visual loss; G47.30 Sleep apnea, unspecified; K21.9 Gastro-esophageal reflux disease without esophagitis; D22.5 Melanocytic nevi of trunk; K57.90 Diverticulosis of intestine, part unspecified, without perforation or abscess without bleeding; F41.9 Anxiety disorder, unspecified; E66.9 Obesity, unspecified; Z98.52 Vasectomy status; Z68.34 Body mass index [BMI] 34.0-34.9, adult; Z79.899 Other long term (current) drug therapy; Z98.84 Bariatric surgery status
CPT/HCPCS: 74240; 74240-26; 88305; 88307; 88342; 94640; A9270-GY; C9113; J0171; J0330; J0694; J1100; J1170; J1644; J2185; J2405; J2704; J2710; J2795; J3010; J3410; J3411; J3420; J3475; J3490; J7050; J7121; J7620-GY; Q9967